=== PATIENT | female | born 1970 | race American Indian/Alaskan Native ===

== ENCOUNTER 2018-06-29 06:12 | Day surgery (SDC) | payer MEDICAID ==
[2018-06-29] MEDS ORDERED: NACL 0.9% 1000 ML 1,000 ML IV SCH (08:00)
[2018-06-29] MEDS ORDERED: HumuLIN R IV ONE ×2 (08:29→09:11)
--- NOTE | 2018-06-29 09:13 | Anesthesia Day of Surgery ---
Anesthesia Day of Surgery - Day of Surgery Patient Examined: Yes Patient H&P Reviewed: Yes Patient is NPO: Yes Beta Blockers: No Cardiac Clearance: No Pulmonary Clearance: No
--- NOTE | 2018-06-29 09:14 | Anesthesia Consultation ---
Anesthesia Consult and Med Hx Date of service: 06/29/18 - Airway Anesthetic Teeth Evaluation: Poor ROM Head & Neck: Adequate Mental/Hyoid Distance: Adequate (broken) - Pulmonary Exam CTA: Yes - Cardiac Exam Cardiac Exam: No Murmur - Pre-Operative Health Status ASA Pre-Surgery Classification: ASA3 Proposed Anesthetic Plan: MAC - Pulmonary Hx Smoking: Yes Hx Asthma: Yes - Cardiovascular System Hx Hypertension: Yes - Endocrine Hx Insulin Dependent Diabetes: Yes
[2018-06-29] MEDS ORDERED: DIPRIVAN 10 MG/ML IV ONE ×2 (10:55)
--- NOTE | 2018-06-29 11:23 | Discharge Summary ---
Short Stay Discharge Plan Activity: advance as tolerated Weight Bearing Status: Weight Bear as Tolerated Diet: regular Follow up with: PRIMARY CARE, [Primary Care Provider] - 7 Days
--- NOTE | 2018-06-29 11:23 | Operative Report ---
Operative Report Operative Report: Date of procedure: 06/29/2018 Procedure: Colonoscopy. Attending physician: Wilfred Gamble MD Mechatronics Engineer: Wilfred Gamble MD Indication: Patient is a 47-year-old female who presents for colonoscopy to evaluate abdominal pain and constipation. A colonoscopy serves to evaluate patient so that treatment may be directed based on the findings. Consent: Informed consent was obtained after advising the patient and family regarding nature of this procedure, its indications, potential benefits as well as possible complications including but not limited to bleeding perforation and adverse reaction to medication, infection as well as other cardiopulmonary complications. An informed written and verbal consent was then obtained after due opportunity was provided for questions and answers. Monitoring: Patient was monitored continuously with pulse oximetry and electrocardiographic recordings as well as blood pressure recordings. Vital signs remained stable throughout this procedure with no untoward events. Preoperative assessment: Patient was assessed immediately prior to this procedure for capacity to tolerate monitored anesthesia care and moderate sedation as well as general anesthesia. Patient's ASA classification is 2, Mallampati class is 2, Hyomental distance is 3. Instrument: [employer] video colonoscope Medications: Propofol given intravenously in divided doses. For details please refer to anesthesia records. Description of procedure: Patient was placed in the left lateral decubitus position after achieving sedation, a digital rectal examination was performed following which the colonoscope was introduced into the anal verge and advanced to the cecum which was identified by the ileocecal valve, the appendiceal orifice, as well as by the cecal strap and direct transillumination. The colonoscope was subsequently withdrawn with careful inspection of all mucosal surfaces. Patient tolerated this procedure well and was subsequently taken to the recovery room. The following findings were noted. Findings: The entirety of the colon to the cecum was normal. On the retroflex view at the anal verge, patient had internal hemorrhoids and hypertrophied anal papilla. Impression: Normal colonoscopy. Hypertrophied anal papilla Internal hemorrhoids. Plan: High-fiber diet. Prn stool softeners. Repeat colonoscopy in 10 years.
[2018-06-29 11:41] VITALS: BP 115/82
== END 2018-06-29 06:13 | disposition home or self-care (01) ==
LOC: GIO 06:12
PROVIDERS: ATTEND Internal Medicine Gastroenterology
DX: K64.8 Other hemorrhoids (principal); R10.84 Generalized abdominal pain; R63.4 Abnormal weight loss; K59.00 Constipation, unspecified; E78.00 Pure hypercholesterolemia, unspecified; I10 Essential (primary) hypertension; J45.909 Unspecified asthma, uncomplicated; K21.9 Gastro-esophageal reflux disease without esophagitis; E11.9 Type 2 diabetes mellitus without complications; Z98.890 Other specified postprocedural states; Z79.899 Other long term (current) drug therapy; Z98.51 Tubal ligation status; Z79.01 Long term (current) use of anticoagulants; Z87.891 Personal history of nicotine dependence
CPT/HCPCS: 45378; 81025; 82962; 96374; J2704; J7030; J1815

== ENCOUNTER 2021-12-25 21:19 | Emergency (ER) | payer MEDICAID ==
[2021-12-26] MEDS ORDERED: SODIUM CHLORIDE 0.9% 1000 ML 1,000 ML IV ONE ×3 (01:14→04:20)
[2021-12-26 01:49] LABS: Bilirubin,Urine NEG (Negative); Blood,Urine MOD (Negative); Color,Urine Colorless (Yellow); Protein,Urine <15 mg/dL mg/dL (Negative); Urobilinogen,Urine < 2.0 mg/dL (<2.0)
[2021-12-26 01:50] LABS: Mucus,Urine FEW /HPF; RBC,Urine < 1.0 /HPF (0.0-6.0)
[2021-12-26 02:00] LABS: Basophils % (Auto) 0.6 % (0.0-1.8); Eosinophils % (Auto) 0.2 % (0.0-4.3); Hematocrit 48.6 % (30.3-42.9); Hemoglobin 16.6 gm/dl (10.1-14.3); Lymphocytes # (Auto) 1.7 K/mm3 (1.2-5.4); Lymphocytes % (Auto) 43.1 % (13.4-35.0); Mean Corpuscular HGB Conc 34 % (30-34); Mean Corpuscular Volume 98 fl (79-97); Monocytes # (Auto) 0.2 K/mm3 (0.0-0.8); Platelet Count 179 K/mm3 (140-440); Red Blood Count 4.97 M/mm3 (3.65-5.03); Red Cell Distribution Width 13.3 % (13.2-15.2)
[2021-12-26 02:04] LABS: Amphetamine Screen,Urine Negative; Benzodiazepines Screen,Urine Negative; Cannabinoid Screen,Urine Negative; Cocaine Screen,Urine Negative; Methadone Screen,Urine Negative; Opiate Screen,Urine Negative
[2021-12-26 02:08] LABS: INR 0.84 (0.87-1.13)
[2021-12-26 02:12] LABS: Creatine Kinase MB 2.9 ng/mL (0.0-4.0)
[2021-12-26 02:13] LABS: Alanine Aminotransferase 110 units/L (7-56); Albumin 4.6 g/dL (3.9-5); BUN/Creatinine Ratio 20; Blood Urea Nitrogen 18 mg/dL (7-17); Hemolysis Index 22
[2021-12-26] MEDS ORDERED: METOPROLOL TARTRATE 5 MG/5 ML INJ IV ONE ×2 (02:19→02:20)
[2021-12-26] MEDS ORDERED: INSULIN REGULAR, HUMAN 100 UNITS/1 ML IV ONE ×2 (02:30→04:20)
--- NOTE | 2021-12-26 05:45 | Emergency Department Report ---
ED General Adult HPI - General Chief complaint: Hyperglycemia Stated complaint: HTN/HIGH BLOOD SUGAR Time Seen by Provider: 12/26/21 01:14 Source: patient Mode of arrival: Ambulatory Limitations: No Limitations - History of Present Illness Initial comments: HTN and High blood sugar bg 507 with EMS -: Gradual, hour(s) Worsens with: none Associated Symptoms: denies: denies other symptoms, confusion, chest pain, diaphoresis - Related Data Home Medications Medication Instructions Recorded Confirmed Last Taken Adult Low Dose Aspirin EC 81 mg PO DAILY 06/29/18 06/29/18 06/29/18 Atrovent Hfa 2 puff INHALATION DAILY 06/29/18 06/29/18 06/29/18 Docusate Calcium 100 mg PO DAILY 06/29/18 06/29/18 06/28/18 Humalog 28 units SUB-Q TID 06/29/18 06/29/18 06/28/18 Hydrazine Sulfate 50 mg PO DAILY 06/29/18 06/29/18 06/29/18 Hydrochlorothiazide 25 mg PO DAILY 06/29/18 06/29/18 06/29/18 Lactulose [Cephulac] 30 ml PO BID 06/29/18 06/29/18 06/28/18 Levemir VIAL 58 units SUB-Q HS 06/29/18 06/29/18 06/27/18 Lyrica 50 mg PO DAILY 06/29/18 06/29/18 06/29/18 Metoprolol 50 mg PO DAILY 06/29/18 06/29/18 06/29/18 Mirtazapine 30 mg PO DAILY 06/29/18 06/29/18 06/29/18 Omeprazole 20 mg PO DAILY 06/29/18 06/29/18 06/29/18 Proventil Hfa 2 puff INHALATION PRN PRN 06/29/18 06/29/18 06/22/18 amLODIPine 10 mg PO DAILY 06/29/18 06/29/18 06/29/18 traZODone 50 mg PO DAILY 06/29/18 06/29/18 06/29/18 Allergies Allergy/AdvReac Type Severity Reaction Status Date / Time No Known Allergies Allergy Verified 06/29/18 07:49 ED Review of Systems ROS: Stated complaint: HTN/HIGH BLOOD SUGAR Other details as noted in HPI Constitutional: denies: chills, fever Eyes: denies: eye pain, eye discharge, vision change ENT: denies: ear pain, throat pain Respiratory: denies: cough, shortness of breath, wheezing Cardiovascular: denies: chest pain, palpitations Endocrine: no symptoms reported Gastrointestinal: denies: abdominal pain, nausea, diarrhea Genitourinary: denies: urgency, dysuria, discharge Musculoskeletal: denies: back pain, joint swelling, arthralgia Skin: denies: rash, lesions Neurological: denies: headache, weakness, paresthesias Psychiatric: denies: anxiety, depression Hematological/Lymphatic: denies: easy bleeding, easy bruising ED Past Medical Hx - Past Medical History Hx Hypertension: Yes Hx Diabetes: Yes Hx GERD: Yes Hx Asthma: Yes - Social History Smoking Status: Former Smoker - Medications Home Medications: Home Medications Medication Instructions Recorded Confirmed Last Taken Type Adult Low Dose Aspirin EC 81 mg PO DAILY 06/29/18 06/29/18 06/29/18 History Atrovent Hfa 2 puff INHALATION DAILY 06/29/18 06/29/18 06/29/18 History Docusate Calcium 100 mg PO DAILY 06/29/18 06/29/18 06/28/18 History Humalog 28 units SUB-Q TID 06/29/18 06/29/18 06/28/18 History Hydrazine Sulfate 50 mg PO DAILY 06/29/18 06/29/18 06/29/18 History Hydrochlorothiazide 25 mg PO DAILY 06/29/18 06/29/18 06/29/18 History Lactulose [Cephulac] 30 ml PO BID 06/29/18 06/29/18 06/28/18 History Levemir VIAL 58 units SUB-Q HS 06/29/18 06/29/18 06/27/18 History Lyrica 50 mg PO DAILY 06/29/18 06/29/18 06/29/18 History Metoprolol 50 mg PO DAILY 06/29/18 06/29/18 06/29/18 History Mirtazapine 30 mg PO DAILY 06/29/18 06/29/18 06/29/18 History Omeprazole 20 mg PO DAILY 06/29/18 06/29/18 06/29/18 History Proventil Hfa 2 puff INHALATION PRN PRN 06/29/18 06/29/18 06/22/18 History amLODIPine 10 mg PO DAILY 06/29/18 06/29/18 06/29/18 History traZODone 50 mg PO DAILY 06/29/18 06/29/18 06/29/18 History ED Physical Exam - General Limitations: No Limitations General appearance: alert, cachectic - Head Head exam: Present: atraumatic, normocephalic - Eye Eye exam: Present: normal appearance - ENT ENT exam: Present: mucous membranes moist - Neck Neck exam: Present: normal inspection - Respiratory Respiratory exam: Present: normal lung sounds bilaterally. Absent: respiratory distress - Cardiovascular Cardiovascular Exam: Present: regular rate, normal rhythm. Absent: systolic murmur, diastolic murmur, rubs, gallop - GI/Abdominal GI/Abdominal exam: Present: soft, normal bowel sounds - Extremities Exam Extremities exam: Present: normal inspection - Back Exam Back exam: Present: normal inspection - Neurological Exam Neurological exam: Present: alert, oriented X3 - Psychiatric Psychiatric exam: Present: normal affect, normal mood - Skin Skin exam: Present: warm, dry, intact, normal color. Absent: rash ED Course Vital Signs 12/26/21 12/26/21 12/26/21 00:52 02:24 04:20 Temperature 97.8 F Pulse Rate 84 85 Respiratory 16 Rate Blood Pressure 202/116 Blood Pressure 180/110 [Right] O2 Sat by Pulse 97 99 Oximetry 12/26/21 04:22 Temperature Pulse Rate 74 Respiratory 20 Rate Blood Pressure Blood Pressure 166/110 [Right] O2 Sat by Pulse 99 Oximetry ED Medical Decision Making - Lab Data Result diagrams: 12/26/21 01:29 12/26/21 01:29 - Radiology Data Radiology results: report reviewed, image reviewed - Medical Decision Making work up shwoed hyperglycemia , no ketosis or gap, insulin given 20 units with 3 litres bs is down to 400s , BP controlled with lopressor 5 Critical care attestation.: If time is entered above; I have spent that time in minutes in the direct care of this critically ill patient, excluding procedure time. ED Disposition Clinical Impression: Hyperglycemia, Uncontrolled hypertension Disposition: 01 HOME / SELF CARE / HOMELESS Is pt being admited?: No Does the pt Need Aspirin: No Condition: Stable Instructions: Hypertension (ED) Referrals: WILLI WALTER MD [Primary Care Provider] - 3-5 Days
[2021-12-26 06:13] VITALS: BP 151/106
== END 2021-12-26 06:46 | disposition home or self-care (01) ==
LOC: ED 21:19
DX: E11.65 Type 2 diabetes mellitus with hyperglycemia (principal); I10 Essential (primary) hypertension; K21.9 Gastro-esophageal reflux disease without esophagitis; J45.909 Unspecified asthma, uncomplicated; Z87.891 Personal history of nicotine dependence
CPT/HCPCS: 36415; 80053; 80307; 81001; 82010; 82550; 82553; 82805; 84484; 85025; 85610; 96361; 96374; 96375; 96376; 99284; J7030; 80320; Q9967; G0480; J1815